=== PATIENT | female | born 1985 | race Two or more races ===

== ENCOUNTER 2024-11-13 09:42 | Emergency (ER) | payer OTHER ==
[~2024-11-13] VITALS: Ht 172.7 cm; Wt 72.7 kg
[2024-11-13 09:45] VITALS: PULSE 102; RESP 12; O2SAT 84
[2024-11-13] MEDS: SODIUM CHLORIDE 0.9% 3,000 ML IV ONE (09:50)
[2024-11-13] MEDS: NOREPINEPHRINE 8 MG/250ML KIT 250 ML IV ONE (09:52)
--- NOTE | 2024-11-13 09:55 | ED.PDOC ---
CPR-HPI HPI Comments 39 year female presents here status post cardiac arrest. Family states she has a history of leukemia which she has been battling for 4 months currently getting treatment of [facility]. She is currently on chemotherapy. Family states this morning she woke up around 4:00 a.m. began to report of a significant headache and had vomiting. Has been stayed with her for a few hours. He had sudden alarm for 9:30 a.m. when he woke up to give her medications and at that time noticed that she was barely breathing. 911 was called and they recommended bystander CPR which he started. Upon medic arrival she was found to be in PEA and upon starting CPR within 1 round ROSC was achieved. She was intubated and field. Patient states she was just at [facility] on Thursday and had a blood transfusion. She has not been sick recently. No recent cough cold runny nose fever or chills. Patient is unresponsive right now and unable to give me any further history. Has been states she is full code. Time Seen by MD: 09:50 Reviewed Notes: Nurses Notes, Dock Attendant Notes, Medications, Allergies Allergies: Coded Allergies: NO KNOWN ALLERGIES (Unverified , 11/13/24) Information Source: Patient, Emergency Med Personnel Mode of Arrival: EMS Timing: Minutes Duration: Down time prior EMS: (30MIN), Total time prior hopital: (40MIN) Onset: At rest Available Hx: Other (CHEMOTHERAPY) Inital rhythm: PEA Treatment: CPR, Intubation Response: Transient return of pulse Associated signs and symptoms: None Past Medical History PAST MEDICAL HISTORY: Cancer Past Medical History (Other): Leukemia Surgical History: Unknown 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 Family History Family History: Unknown Social History Smoker: Non-Smoker Alcohol: Denies ETOH Use Drugs: Denies Drug Use Lives In: Home Unable to Obtain due to: Medical Urgency All Other Systems: Reviewed and Negative Physical Exam Exam Comments Low blood pressure in the 50s General Appearance: Other (Patient unresponsive, intubated) HEENT: Normal ENT Inspection, Other (Pupils 2-3 mm sluggish bilaterally) Neck: Normal, Normal Inspection Respiratory: Lungs Clear, No Accessory Muscle Use, No Respiratory Distress, Normal Breath Sounds, Other (Bilateral breath sounds) Cardiovascular: No Edema, Normal Peripheral Pulses, Regular Rate/Rhythm Breast Exam: Deferred Gastrointestinal: Soft Genitalia: Deferred Pelvic: Deferred Rectal: Deferred Extremities: No calf tenderness, Normal inspection, No pedal edema, Other (IO in place to the left tibia) Musculoskeletal : Apperance: Normal Neurologic: Other (Unresponsive) Cerebellar Function: Normal Reflexes: Normal Skin: Dry, Normal Color, Warm Lymphatic: No Adenopathy EKG EKG : Comments Sinus tachycardia rate of 103, no significant ST changes Was a procedure done? Was a procedure done?: No Differential Dx CPR Differential Diagnosis: Cardiopulmonary arrest, Cardiac Tamponade, Cardiogenic shock, Dysrhythmia, Electrolyte disorder, Heart Block, Myocardial Infarction, Pneumothorax, Pulmonary Embolus, Respiratory Failure Other Differential Diagnosis Intracranial hemorrhage, pulmonary embolism sepsis X-Ray, Labs, Meds, VS Vital Signs Date Time Temp Pulse Resp B/P (MAP) Pulse Ox O2 Delivery O2 Flow Rate FiO2 11/13/24 12:30 92/54 11/13/24 12:00 95.7 101 26 85/58 (67) 97 95.7 11/13/24 11:30 78/46 11/13/24 11:30 95.5 97 26 78/46 (57) 98 95.5 11/13/24 11:23 94 18 78/46 (57) 100 45 11/13/24 11:21 94 11/13/24 11:15 95.4 116 26 79/49 (59) 100 95.4 11/13/24 11:10 79/49 11/13/24 11:00 95.4 93 18 88/43 (58) 100 95.4 11/13/24 11:00 65 11/13/24 11:00 88/43 11/13/24 10:55 68/35 11/13/24 10:50 95.4 96 13 61/31 (41) 100 95.4 11/13/24 10:50 61/31 11/13/24 10:15 98 18 113/68 (83) 99 11/13/24 10:10 119/73 11/13/24 10:05 144/89 11/13/24 10:05 106 22 144/89 (107) 96 11/13/24 10:00 114 18 144/89 (107) 100 100 11/13/24 10:00 57/24 11/13/24 09:52 101 18 57/ (35) 84 11/13/24 09:50 103 11/13/24 09:50 102 12 57/ (35) 84 11/13/24 09:45 102 12 84 Mechanical Ventilator+ 100 100 Lab Test 11/13/24 11:47 11/13/24 10:58 11/13/24 10:50 11/13/24 10:00 Range/Units Troponin I High Sensitivity 29 10 </=34 ng/L White Blood Count 0.7 *L 4.4-10.8 10^3/uL Red Blood Count 1.74 L 4.0-5.20 10^6/uL Hemoglobin 5.7 *L 12.2-16.2 g/dL Hematocrit 15.8 L 36.0-46.0 % Mean Corpuscular Volume 90.9 80.0-100.0 fL Mean Corpuscular Hemoglobin 32.8 H 28.0-32.0 pg Mean Corpuscular Hemoglobin Concent 36.1 H 32.0-36.0 g/dL Red Cell Distribution Width 16.4 H 11.8-14.3 % Platelet Count 3 *L 140-450 10^3/uL Mean Platelet Volume 12.0 H 6.9-10.8 fL Neutrophils (%) (Auto) 0.4 L 37.0-80.0 % Lymphocytes (%) (Auto) 99.0 H 10.0-50.0 % Monocytes (%) (Auto) 0.4 0.0-12.0 % Eosinophils (%) (Auto) 0.2 0.0-7.0 % Basophils (%) (Auto) 0.0 0.0-2.0 % Neutrophils # (Auto) 0 L 1.6-8.6 10 ^3/uL Lymphocytes # (Auto) 0.7 0.4-5.4 10 ^3/uL Monocytes # (Auto) 0 0-1.3 10 ^3/uL Eosinophils # (Auto) 0 0-0.8 10 ^3/uL Basophils # (Auto) 0 0-0.2 10 ^3/uL Nucleated Red Blood Cells 0.2 % Platelet Estimate Markedly decreased Anisocytosis (manual) Slight Tear Drop Cells Few Ovalocytes Few Blood Gas Specimen Type Arterial Blood Gas Sample Site Left radial Blood Gas Patient Temperature 37.0 Arterial Blood Date Drawn [id number] Arterial Blood pH 7.266 L 7.350-7.450 Arterial Blood Partial Pressure CO2 50.4 H 32.0-45.0 mmHg Arterial Blood Partial Pressure O2 260.7 H 83.0-108.0 mmHg Arterial Blood HCO3 22.4 21.0-28.0 mmol/L Arterial Blood Oxygen Saturation 98.7 H 94.0-98.0 % Arterial Blood Base Excess -4.1 L -2.0-3.0 mmol/L Arterial Blood Oxyhemoglobin 96.7 94.0-98.0 % Arterial Blood Carboxyhemoglobin 0.7 0.5-1.5 % Arterial Blood Methemoglobin 1.3 0.0-1.5 % Best Test Modified Blood Gas Total Hemoglobin 5.40 *L 12.0-16.0 g/dL Blood Gas Set Respiration Rate 18.0 Blood Gas Modality Vent - ac FiO2 % 100.0 Blood Gas Tidal Volume 450.0 Blood Gas PEEP or CPAP 5.0 Blood Gas Critical Value Read Back Yes Blood Gas Notified Whom catherine Mccarthy md Blood Gas Notified Time [id number] Blood Gas Notified By Wind Turbine Engineer latisha fan Prothrombin Time 11.4 9.3-11.8 sec Prothrombin Time INR 1.08 0.9-1.15 Activated Partial Thromboplast Time 23.6 L 24.5-34.5 SEC D-Dimer, Quantitative 9.82 H 0.0-0.49 mg/L FEU Sodium Level 142 136-145 mmol/L Potassium Level 3.8 3.5-5.1 mmol/L Chloride Level 108 H 98-107 mmol/L Carbon Dioxide Level 23 20-31 mmol/L Anion Gap 11 5-15 Blood Urea Nitrogen 18 9-23 mg/dL Creatinine 0.69 0.550-1.02 mg/dL Glomerular Filtration Rate Calc 112 >90 mL/min BUN/Creatinine Ratio 26.1 H 10.0-20.0 Serum Glucose 256 H 74-106 mg/dL Calcium Level 7.8 L 8.7-10.4 mg/dL Magnesium Level 1.7 1.6-2.6 mg/dL Total Bilirubin 0.6 0.2-1.0 mg/dL Aspartate Amino Transferase (AST) 19 13-40 U/L Alanine Aminotransferase (ALT) 16 7-40 U/L Alkaline Phosphatase 58 46-116 U/L Total Protein 5.6 L 5.7-8.2 g/dL Albumin 3.5 3.2-4.8 g/dL Test 11/13/24 09:30 Range/Units Urine Color Light-yellow Yellow Urine Clarity Clear Clear Urine pH 6.5 5.0-9.0 Urine Specific [place] 1.016 1.001-1.035 Urine Protein Trace H Negative Urine Ketones Trace Negative Urine Blood Trace H Negative /uL Urine Nitrite Negative Negative Urine Bilirubin Negative Negative Urine Urobilinogen Normal Negative mg/dL Urine Leukocyte Esterase Negative Negative /uL Urine RBC 8 0 - 4 /hpf Urine Microscopic WBC 1 0-5 /HPF Urine Squamous Epithelial Cells Few <5 /hpf Urine Bacteria None seen None Seen /hpf Urine Glucose 3+ H Normal mg/dL Urine Test Negative Negative Urine Opiates Screen Neg NEGATIVE Urine Fentanyl Screen Neg NEGATIVE Urine Barbiturates Screen Neg NEGATIVE Urine Phencyclidine Screen Neg NEGATIVE Urine Amphetamines Screen Neg NEGATIVE Urine Benzodiazepines Screen Neg NEGATIVE Urine Cocaine Screen Neg NEGATIVE Urine Cannabinoids Screen Neg NEGATIVE Current Medications Medications (Trade) Dose Ordered Sig/Jimmy Route Start Time Stop Time Status Last Admin Diagnostic Test (Pha) (Accu-Chek Comfort Curve T) 1 strip PERCODEBLUE PRN 11/13/24 10:00 11/14/24 09:59 11/13/24 11:53 Norepinephrine Bitartrate 250 ml @ 3.75 mls/hr Q24H IV 11/13/24 10:00 11/13/24 10:00 Sodium Chloride 3,000 ml @ 1,000 mls/hr Q3H ONCE IV 11/13/24 09:50 11/13/24 12:49 DC 11/13/24 09:50 [place] [address] Ph: [phone] DIAGNOSTIC IMAGING Diagnostic Imaging Report : [id number] Signed PATIENT: Teodora Kaye ACCT: [id number] UNIT: [id number] : 1985 LOC: ER ROOM / BED: / AGE / SEX: 39 / F ADM STATUS: REG ER SERVICE 4 ORDERING PHYSICIAN: JOI MCCARTHY MD PROCEDURE(s): CXRP - CHEST PORTABLE REASON: S/P CODE BLUE INTUBATION ORDER NUMBER(s): [id number], ACCESSION NUMBER(s): [id number] CHEST PORTABLE, HISTORY: S/P CODE BLUE INTUBATION COMPARISON: None None TECHNICAL DATA: 1 view of the chest was obtained. FINDINGS: Lines and tubes: ET in the mid thoracic trachea, PICC in the SVC, NG in the stomach. Cardiomediastinal silhouette: normal Pulmonary vasculature: normal Lung expansion: normal Lung airspace: Multifocal bilateral patchy consolidation. Lung interstitium: normal Pleura: normal Pneumothorax: no Bones: Unremarkable Other: no IMPRESSION: ET in the mid thoracic trachea, PICC in the SVC, NG in the stomach.Multifocal bilateral patchy consolidation. ATED BY: WILMER GARCIA MD DICTATED DATE/TIME: 11/13/241031 SIGNED BY: WILMER GARCIA MD SIGNED DATE/TIME: 11/13/241031 CC: [place] [address] Ph: [phone] DIAGNOSTIC IMAGING Diagnostic Imaging Report : [id number] Signed PATIENT: Teodora Kaye ACCT: [id number] UNIT: [id number] : 1985 LOC: ER ROOM / BED: / AGE / SEX: 39 / F ADM STATUS: REG ER SERVICE 0955 ORDERING PHYSICIAN: JOI MCCARTHY MD PROCEDURE(s): HWOCT - HEAD WITHOUT CONTRAST REASON: Rule out intracranial hemorrhage ORDER NUMBER(s): [id number], ACCESSION NUMBER(s): [id number] CT HEAD WITHOUT CONTRAST INDICATION: Rule out intracranial hemorrhage EXAM DATE: 11/13/2024 10:15 AM COMPARISON: None RADIATION DOSE: CTDIvol: 54 mGy, DLP: 1072 mGy*cm PROCEDURE: CT scans of the head were obtained from the vertex to the skull base. Sagittal and coronal reconstructions were provided. All CT scans at this medical facility are performed using dose modulation techniques as appropriate to a performed exam including the following: Automated exposure control was utilized; adjustment of the MA and/or KV according to patient size; and use of iterative reconstruction technique. FINDINGS: There is a 2.6 X 3.0 X 2.2 cm right cerebellar parenchymal hemorrhage with possible intra ventricular extension and effacement of the basal cisterns and downward tonsillar herniation. The brain otherwise shows normal morphology and sapp-white matter differentiation. The ventricles are normal in size. The basal cisterns are patent. The skull and visible facial bones are intact. The paranasal sinuses, mastoid air cells and middle ear cavities are well-aerated. The soft tissues of the scalp are unremarkable. IMPRESSION: 2.6 x 3.0 x 2.2 cm right cerebellar parenchymal hemorrhage with possible intra ventricular extension into the 4th ventricle and effacement of the basal cisterns and downward tonsillar herniation. Critical Result: cerebellum hemorrhage Findings discussed with dr. gracia at 11/13/2024 10:49 AM and acknowledged receipt and understanding of the findings. ATED BY: WILMER GARCIA MD DICTATED DATE/TIME: 11/13/241053 SIGNED BY: WILMER GARCIA MD SIGNED DATE/TIME: 11/13/241053 CC: [place] [address] Ph: [phone] DIAGNOSTIC IMAGING Diagnostic Imaging Report : [id number] Signed PATIENT: Teodora Kyae ACCT: [id number] UNIT: [id number] : 1985 LOC: ER ROOM / BED: / AGE / SEX: 39 / F ADM STATUS: REG ER SERVICE 0955 ORDERING PHYSICIAN: JOI MCCARTHY MD PROCEDURE(s): CTACH - CT ANGIO CHEST CONTRAST REASON: Rule out PE ORDER NUMBER(s): [id number], ACCESSION NUMBER(s): [id number] CT CT ANGIO CHEST CONTRAST INDICATION: Rule out PE EXAM DATE: 11/13/2024 10:15 AM COMPARISON: None RADIATION DOSE: CTDIvol: 13 mGy, DLP: 431 mGy*cm PROCEDURE: Helical CT angiographic images were obtained of the chest with intravenous contrast. Sagittal and coronal reconstructions as well as MIPS are provided. Maximum intensity projections performed (MIPs) were performed for CTA. ADDITIONAL IMAGES / REFORMATS: None All CT scans at this medical facility are performed using dose modulation te chniques as appropriate to a performed exam including the following: Automated exposure control was utilized; adjustment of the MA and/or KV according to patient size; and use of iterative reconstruction technique. FINDINGS: Bones: Normal. Visualized Abdomen: Normal. Chest Wall: Normal. Soft tissues: Normal. Mediastinum: Normal. Heart: Normal. Vessels: No filling defects in the visualized pulmonary arteries including the segmental and subsegmental pulmonary arteries. Lymph Nodes: Normal. Pleura: Normal. Airways: Normal. Lung: Bilateral perihilar consolidation. Other: None IMPRESSION: No pulmonary embolism in the visualized pulmonary arteries including the segmental and subsegmental pulmonary arteries. Bilateral perihilar consolidation would be seen with ARDS. ATED BY: WILMER GARCIA MD DICTATED DATE/TIME: 11/13/24 110 SIGNED BY: WILMER GARCIA MD SIGNED DATE/TIME: 11/13/24 110 CC: 39-year-old female presents here status post cardiac arrest. She has a known history of leukemia. She woke up this morning with severe headache and vomiting. Currently ROSC was achieved in field however patient continues to have low blood pressures that we are actively treating. been is at bedside and I spoke to him initially. At this time CBC CMP troponin D-dimer, urinalysis, chest x-ray, CT angio of the chest, CT scan of the brain has been ordered for evaluation. Patient has been started on normal saline 3 L. and Levophed. Concern for acute hemorrhage, PE, sepsis. Patient continues to be unresponsive. Labs have returned which demonstrate low platelet count of 3, hemoglobin of 5.6 WBC count of 0.7. I immediately ordered the patient blood. Black blood and black platelets were requested by blood bank by myself however nursing staff was advised that platelets are not kept at this hospital and has been ordered stat from outside facility. CT head has demonstrated a cerebellar bleed with some tonsillar herniation. We immediately attempted transfer. [facility] was called I spoke to Dr. Dejesus regarding patient's care. He was also going to look for higher level of care. Patient was ultimately accepted by [facility]- . He advised the neurosurgeons do not prefer hyperventilation. They requested I start mannitol IV and seizure precaution meds. I have started mannitol IV as well as Keppra [address] of the chest demonstrates no PE. but does demonstrate bilateral perihilar consolidation as would be seen with ARDS. [facility] case #[id number] Time of 1ST Reevaluation: 10:20 Reevaluation 1ST: Unchanged Time of 2ND Reevaluation: 13:22 Reevaluation 3RD: Unchanged Patient Education/Counseling: Pt Unresponsive Family Education/Counseling: Diagnosis, Treatment SEPSIS Sepsis Screen Physician Orders Electrocardigram (11/13/24 10:54) Electrocardigram (11/13/24 12:54) Chest Portable (11/13/24 09:55) Abg W/ Co-Ox (11/13/24 09:55) Place Ng (11/13/24 09:55) Glucose Blood (Accu-Chek Comfort Curve T (11/13/24 10:00) Norepinephrine 8 Mg/250ml Kit (Levophed) (11/13/24 10:00) Head Without Contrast (11/13/24 09:55) Ct Angio Chest Contrast (11/13/24 09:55) Blood Culture (11/13/24 09:55) Urine Bacterial Culture (11/13/24 09:55) Ventilator Setup (11/13/24 10:00) Abg W/ Co-Ox (11/13/24 11:00) Respiratory Culture W/ Gs (11/13/24 10:00) Communication Order (11/13/24 10:10) Type And Screen (11/13/24 11:49) Packedcells -Active Bleeding (11/13/24 11:49) Pheresis Platelets (11/13/24 11:49) Levetiracetam 1000 Mg/100ml (Levetiracet (11/13/24 13:00) Mannitol 20% Soln 100 Gm/500ml (11/13/24 13:00) Vital Signs Date Time Temp Pulse Resp B/P (MAP) Pulse Ox O2 Delivery O2 Flow Rate FiO2 11/13/24 12:30 92/54 11/13/24 12:00 95.7 101 26 85/58 (67) 97 95.7 11/13/24 11:30 78/46 11/13/24 11:30 95.5 97 26 78/46 (57) 98 95.5 11/13/24 11:23 94 18 78/46 (57) 100 45 11/13/24 11:21 94 11/13/24 11:15 95.4 116 26 79/49 (59) 100 95.4 11/13/24 11:10 79/49 11/13/24 11:00 95.4 93 18 88/43 (58) 100 95.4 11/13/24 11:00 65 11/13/24 11:00 88/43 11/13/24 10:55 68/35 11/13/24 10:50 95.4 96 13 61/31 (41) 100 95.4 11/13/24 10:50 61/31 11/13/24 10:15 98 18 113/68 (83) 99 11/13/24 10:10 119/73 11/13/24 10:05 144/89 11/13/24 10:05 106 22 144/89 (107) 96 11/13/24 10:00 114 18 144/89 (107) 100 100 11/13/24 10:00 57/24 11/13/24 09:52 101 18 57/24 (35) 84 11/13/24 09:50 103 11/13/24 09:50 102 12 57/ (35) 84 11/13/24 09:45 102 12 84 Mechanical Ventilator+ 100 100 Laboratory Tests Test 11/13/24 10:58 White Blood Count 0.7 10^3/uL (4.4-10.8) *L Medications Medications Dose Ordered Sig/Jimmy Route Start Time Stop Time Status Last Admin Dose Admin Diagnostic Test (Pha) 1 strip PERCODEBLUE PRN 11/13/24 10:00 11/14/24 09:59 11/13/24 11:53 Norepinephrine Bitartrate 250 ml @ 3.75 mls/hr Q24H IV 11/13/24 10:00 11/13/24 10:00 Sodium Chloride 3,000 ml @ 1,000 mls/hr Q3H ONCE IV 11/13/24 09:50 11/13/24 12:49 DC 11/13/24 09:50 Departure 1 Departure Time of Disposition: 12:20 Impression: Primary Impression: Acute cerebellar hemorrhage Additional Impressions: Hernia, tonsillar Anemia Qualified Codes: D64.9 - Anemia, unspecified ARDS (adult respiratory distress syndrome) Thrombocytopenia Cardiac arrest Disposition: SHORT TERM HOSPITAL Condition: Critical Critical Care Note Critical Care Time?: Yes (120 minutes critical care) Critical care comment: Time spent evaluating the patient, multiple re-evaluations of the patient given her blood pressure and critical status, speaking to lab and nursing staff regarding her critical lab results, calling blood blank, speaking to blood bank, ordering black blood, speaking to [place] regarding transfer, speaking to [place] for higher level of care transfer, speaking to nurse multiple times for patient care, evaluating fenced status, managing vent managing ABG Heart Score Heart Score: Heart Score Response (Comments) Value History Highly Suspicious 2 EKG Normal 0 Age <45 0 Risk Factors 1 or 2 risk factors 1 Troponin Normal limit 0 Total 3 Stability Stability form required: No I personally scribed for JOI MCCARTHY MD ([email or web address]) on 11/13/24 at 09:55. Electronically submitted by Martina Hernandez ([email or web address]). I personally scribed for JOI MCCARTHY MD ([email or web address]) on 11/13/24 at 11:01. Electronically submitted by Martina Hernandez ([email or web address]). I personally scribed for JOI MCCARTHY MD ([email or web address]) on 11/13/24 at 11:17. Electronically submitted by Martina Hernandez ([email or web address]). I personally scribed for JOI MCCARTHY MD ([email or web address]) on 11/13/24 at 11:18. Electronically submitted by Martina Hernandez ([email or web address]). JOI MCCARTHY MD Nov 13, 2024 09:55
--- NOTE | 2024-11-13 09:57 | ECG ---
[facility] Test Date: 2024-11-13 Test Time: 09:50:19 Pat Name: Teodora Kaye Department: ED Room: Gender: F Circuit Walker: KATIE : 1985 Requested By: JOI MCCARTHY Order Number: [id number] Reading MD: Jesus Manuel Blakely Measurements Intervals [place] Rate: 103 P: 66 SD: 116 QRS: 74 QRSD: 86 T: 63 QT: 370 QTc: 485 Interpretive Statements Sinus tachycardia Electronically Signed On 11-14-2024 19:30:48 PDT by Jesus Manuel Blakely Please click the below link to view image of tracing.
[2024-11-13] MEDS: NOREPINEPHRINE 8 MG/250ML KIT 250 ML IV SCH (10:00)
[2024-11-13 10:29] LABS: Urine Protein, UAD TRACE (Negative)
[2024-11-13 10:34] LABS: Amphetamine Screen, Urine Neg (NEGATIVE); Barbiturate Scree,Urine Neg (NEGATIVE); Benzodiazephine Screen, Urine Neg (NEGATIVE); Cannabinoid Screen, Urine Neg (NEGATIVE); Cocaine Screen, Urine Neg (NEGATIVE); Opiate Scree,Urine Neg (NEGATIVE); Phencyclidine Screen, Urine Neg (NEGATIVE)
--- NOTE | 2024-11-13 10:34 | DVH ---
XY CHEST PORTABLE, HISTORY: S/P CODE BLUE INTUBATION COMPARISON: None None TECHNICAL DATA: 1 view of the chest was obtained. FINDINGS: Lines and tubes: ET in the mid thoracic trachea, PICC in the SVC, NG in the stomach. Cardiomediastinal silhouette: normal Pulmonary vasculature: normal Lung expansion: normal Lung airspace: Multifocal bilateral patchy consolidation. Lung interstitium: normal Pleura: normal Pneumothorax: no Bones: Unremarkable Other: no IMPRESSION: ET in the mid thoracic trachea, PICC in the SVC, NG in the stomach.Multifocal bilateral patchy consol idation.
[2024-11-13 10:37] LABS: Alanine Aminotransferase 16 U/L (7-40); Albumin 3.5 g/dL (3.2-4.8); Alkaline Phosphatase 58 U/L (46-116); Anion Gap 11 (5-15); BUN/Creatinine Ratio 26.1 (10.0-20.0); Blood Urea Nitrogen 18 mg/dL (9-23); Carbon Dioxide 23 mmol/L (20-31); Magnesium 1.7 mg/dL (1.6-2.6); Potassium 3.8 mmol/L (3.5-5.1); Sodium 142 mmol/L (136-145)
[2024-11-13 10:38] LABS: Bilirubin, Total 0.6 mg/dL (0.2-1.0)
[2024-11-13 10:40] LABS: Calcium 7.8 mg/dL (8.7-10.4); Chloride 108 mmol/L (98-107); Glucose 256 mg/dL (74-106); Total Protein 5.6 g/dL (5.7-8.2)
[2024-11-13 10:53] LABS: INR 1.08 (0.9-1.15); Partial Thromboplastin Time 23.6 SEC (24.5-34.5); Prothrombin Time 11.4 sec (9.3-11.8)
--- NOTE | 2024-11-13 10:56 | DVH ---
CT HEAD WITHOUT CONTRAST INDICATION: Rule out intracranial hemorrhage EXAM DATE: 11/13/2024 10:15 AM COMPARISON: None RADIATION DOSE: CTDIvol: 54 mGy, DLP: 1072 mGy*cm PROCEDURE: CT scans of the head were obtained from the vertex to the skull base. Sagittal and coronal reconstructions were provided. All CT scans at this medical facility are performed using dose modulation techniques as appropriate t o a performed exam including the following: Automated exposure control was utilized; adjustment of th e MA and/or KV according to patient size; and use of iterative reconstruction technique. FINDINGS: There is a 2.6 X 3.0 X 2.2 cm right cerebellar parenchymal hemorrhage with possible intra ventricular extension and effacement of the basal cisterns and downward tonsillar herniation. The b rain otherwise shows normal morphology and sapp-white matter differentiation. The ventricles are norm al in size. The basal cisterns are patent. The skull and visible facial bones are intact. The paranas al sinuses, mastoid air cells and middle ear cavities are well-aerated. The soft tissues of the scalp are unremarkable. IMPRESSION: 2.6 x 3.0 x 2.2 cm right cerebellar parenchymal hemorrhage with possible intra ventricular extension into the 4th ventricle and effacement of the basal cisterns and downward tonsillar herniation. Critical Result: cerebellum hemorrhage Findings discussed with dr. gracia at 11/13/2024 10:49 AM and acknowledged receipt and understanding of the findings.
--- NOTE | 2024-11-13 11:04 | DVH ---
CT CT ANGIO CHEST CONTRAST INDICATION: Rule out PE EXAM DATE: 11/13/2024 10:15 AM COMPARISON: None RADIATION DOSE: CTDIvol: 13 mGy, DLP: 431 mGy*cm PROCEDURE: Helical CT angiographic images were obtained of the chest with intravenous contrast. Sagi ttal and coronal reconstructions as well as MIPS are provided. Maximum intensity projections performe d (MIPs) were performed for CTA. ADDITIONAL IMAGES / REFORMATS: None All CT scans at this medical facility are performed using dose modulation techniques as appropriate t o a performed exam including the following: Automated exposure control was utilized; adjustment of th e MA and/or KV according to patient size; and use of iterative reconstruction technique. FINDINGS: Bones: Normal. Visualized Abdomen: Normal. Chest Wall: Normal. Soft tissues: Normal. Mediastinum: Normal. Heart: Normal. Vessels: No filling defects in the visualized pulmonary arteries including the segmental and subsegme ntal pulmonary arteries. Lymph Nodes: Normal. Pleura: Normal. Airways: Normal. Lung: Bilateral perihilar consolidation. Other: None IMPRESSION: No pulmonary embolism in the visualized pulmonary arteries including the segmental and subsegmental p ulmonary arteries. Bilateral perihilar consolidation would be seen with ARDS.
[2024-11-13 11:15] LABS: Hematocrit 15.8 % (36.0-46.0); Mean Corpuscular Hemoglobin 32.8 pg (28.0-32.0); Mean Corpuscular Volume 90.9 fL (80.0-100.0); Nucleated Red Blood Cells % 0.2 %
[2024-11-13 11:18] LABS: Hemoglobin 5.7 g/dL (12.2-16.2)
[2024-11-13] MEDS: IOHEXOL 350 MG/ML 100ML IJ ONE (11:22)
[2024-11-13 11:34] LABS: Base Excess -4.1 mmol/L (-2.0-3.0)
[2024-11-13 11:36] LABS: Anisocytosis Slight; Ovalocytes FEW; Tear Drop Cells FEW
[2024-11-13] MEDS: ACCU-CHEK COMFORT CURVE STRIP VI PRN (11:53)
[2024-11-13] MEDS: MANNITOL 20% SOLN 100 gm/500ml 350 ML IV ONE (13:00)
[2024-11-13] MEDS: levETIRAcetam 1000 mg/100ml 100 ML IV ONE (13:05)
[2024-11-13 13:20] VITALS: BP 92/56; PULSE 104; RESP 26; TEMP 96.3
[2024-11-13 13:50] VITALS: BP 93/54; PULSE 104; RESP 26; TEMP 96.4
[2024-11-13 14:00] VITALS: BP 98/59; PULSE 104; RESP 26; TEMP 96.4; O2SAT 100
[2024-11-13 14:05] VITALS: BP 100/56
== END 2024-11-13 14:05 | disposition short-term general hospital (02) ==
LOC: EDBD 09:42 → ER 09:42
DX: I61.4 Nontraumatic intracerebral hemorrhage in cerebellum (principal); D69.6 Thrombocytopenia, unspecified; J80 Acute respiratory distress syndrome; I46.9 Cardiac arrest, cause unspecified; K46.9 Unspecified abdominal hernia without obstruction or gangrene; D64.9 Anemia, unspecified
CPT/HCPCS: 36415; 36430; 36600; 70450; 71045; 71275; 80053; 80307; 81001; 81025; 82805; 83735; 84484; 85025; 85379; 85610; 85730; 86850; 86900; 86901; 86920; 87040; 87070; 87086; 87205; 93005; 96365; 96366; 96375; 99291; 99292; J1953; J7030; P9016; Q9967; 96361; 96374